=== PATIENT | female | born 1940 | race Caucasian/White ===

== ENCOUNTER 2017-03-10 06:39 | Emergency (ER) | payer MEDICARE, OTHER ==
[2015-12-29 07:46] VITALS: BMI 27.6
[~2017-03-10 06:39] MED LIST: K-DUR20 MEQ PO; LASIX40 MG PO; PRILOSEC20 MG PO; RESTORIL15 MG PO; TOPAMAX25 MG PO; VITAMIN D2000 UNIT PO; ZESTRIL20 MG PO
== END 2017-03-10 07:35 | disposition home or self-care (01) ==
LOC: D.ER 06:39
DX: S59.912A Unspecified injury of left forearm, initial encounter (principal); W19.XXXA Unspecified fall, initial encounter; I10 Essential (primary) hypertension; F17.200 Nicotine dependence, unspecified, uncomplicated

== ENCOUNTER → 2017-04-12 10:02 | Outpatient (CLI) | payer MEDICARE, OTHER ==
[2015-12-29 07:46] VITALS: BMI 27.6
== END | disposition home or self-care (01) ==
LOC: D.MRI 10:02
DX: S83.221A Peripheral tear of medial meniscus, current injury, right knee, initial encounter (principal); S52.122A Displaced fracture of head of left radius, initial encounter for closed fracture

== ENCOUNTER 2017-05-09 06:55 | Day surgery (SDC) | payer MEDICARE, OTHER ==
[2017-05-08 15:01] LABS: HEMATOCRIT 39.2 % (36.0-48.0); HEMOGLOBIN 13.3 g/dL (12-16); MCH 31.8 pg (26.0-34.0); MCHC 33.9 g/dL (31.0-37.0); MCV 93.8 fL (80.0-100.0); MEAN PLATELET VOLUME 9.1 fL (7.4-10.4); RBC 4.18 10x6/uL (4.00-5.40); RDW 13.3 % (11.5-14.5); WBC 6.6 10x3/uL (4.8-10.8)
[~2017-05-09] VITALS: Ht 165.1 cm; Wt 76.2 kg
[~2017-05-09 06:55] MED LIST changes: +LOPRESSOR25 MG PO; -RESTORIL15 MG PO; +TEMAZEPAM30 MG PO
[2017-05-09 10:12] VITALS: BP 138/93; Ht 165.1 cm; Wt 76.2 kg
[2017-05-09] MEDS ORDERED: PERCOCET 10/3251 TA1 PO (15:00)
--- NOTE | 2017-05-10 21:23 | OP ---
PATIENT NAME: ALIRIO ORDAZ MEDICAL RECORD: [id number] :44 LOCATION:[facility] ADMISSION DATE: SURGEON: BRIE BRADLEY MD DATE OF OPERATION: 05/09/2017 PREOPERATIVE DIAGNOSIS: Nonhealing radial head fracture. POSTOPERATIVE DIAGNOSIS: Nonhealing radial head fracture. PROCEDURE: Radial head replacement. SURGEON: Brie Bradley MD. ANESTHESIA: General. INTRAOPERATIVE COMPLICATIONS: None. SUMMARY OF PATHOLOGIC FINDINGS: The patient had actually more of a radial neck fracture that extended to the edge of the radial head, which was nonhealing. IMPLANTS USED: T[employer] radial head implant 20+4 on a 6.5+4. OPERATIVE SUMMARY IN DETAIL: After obtaining the appropriate preoperative orthopedic surgery consent as well as anesthetic consultation, evaluation and clearance, the patient was brought to the operating room and placed on the operating table in supine position. After general laryngeal mask was administered, tourniquet was placed about the proximal aspect of the left upper extremity. Left upper extremity was then prepped and draped in routine sterile fashion. The arm was elevated and exsanguinated, tourniquet inflated to 250 mmHg. An incision was made from the lateral epicondyle just distally. This was taken down to the level of the muscle, which was split in line with fibers of muscle and down deeper to the capsule itself, which was split to reveal the above pathology. The radial head was excised using a sagittal saw. Appropriate measurements were taken on the back table. Serial and sequential reaming and broaching were done for a 6.5 stem. Trials were undertaken with the entire implant 6.5+4 and a 20+4 head with the most appropriate. The final component was put into place and reduced and found to be stable in both flexion and extension. The wound was irrigated and the capsule was closed. This was followed by deep fascial closure, superficial fascial closure, subcutaneous closure all done with #1 Vicryl followed by 2-0 Vicryl and skin janine. Sterile dressings were applied. Tourniquet was deflated. The patient was awakened, taken to recovery room in stable condition. All final needle and sponge counts were correct. 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
== END 2017-05-09 18:15 | disposition home or self-care (01) ==
LOC: D.OPS 06:55 → D.PAN 10:30 → D.OPS 12:30
PROVIDERS: Anesthesiology
DX: S52.122G Displaced fracture of head of left radius, subsequent encounter for closed fracture with delayed healing (principal); Z01.812 Encounter for preprocedural laboratory examination

== ENCOUNTER 2017-05-13 02:30 | Emergency (ER) | payer MEDICARE, OTHER ==
[2017-05-09 10:12] VITALS: BMI 28.0
[~2017-05-13 02:30] MED LIST changes: +PERCOCET 10/3251 TA1 PO
== END 2017-05-13 04:17 | disposition home or self-care (01) ==
LOC: D.ER 02:30
DX: G89.18 Other acute postprocedural pain (principal); M79.602 Pain in left arm; I10 Essential (primary) hypertension